=== PATIENT | male | born 1965 | race Caucasian/White ===

== ENCOUNTER 2020-12-22 07:43 | Observation (INO) | payer MEDICARE, OTHER ==
[~2020-12-22] VITALS: Ht 167.6 cm; Wt 77.8 kg
[~2020-12-22 07:43] MED LIST: ASPI325T8 PO; CLOP75TA PO; LISI2.5T PO; METO25TA4 PO; SIMV40TA18 PO
--- NOTE | 2020-12-22 08:24 | PHYS DOC ---
Past Medical History Past Medical History: CAD, High Cholesterol, Hypertension, [place] Past Surgical History: Other Additional Past Surgical Histo: cardiac stents, hernia surgery Smoking Status: Current Every Day Smoker Alcohol Use: Occasionally Drug Use: Marijuana General Adult EDM: Chief Complaint: BLOODY STOOL HPI: HPI: 55-year-old male past medical history of CAD with stent on Plavix, hypertension hyperlipidemia, presents the ED with complaints of black stools for the past 2- 3days, hasn't taken his aspirin or plavix because of this (ASA 324mg qdaily). Patient with no prior history of GI bleed or blood transfusion. Denies any known liver disease but drinks alcohol frequently. Has no primary care physician and states his medications are refilled by Dr. Pennington. No associated syncope, dyspnea, abdominal pain or chest pain. at bedside-pt consents for her involvement/knowledge of his medical tx/plan. Review of Systems: Review of Systems: Constitutional: Well developed, well nourished, no acute distress, non-toxic appearance. HENT: Normocephalic, atraumatic, Eyes: EOMI, conjunctiva normal, no discharge. Neck: Normal range of motion, supple, Cardiovascular: S1/2 present, regular rhythm Lungs & Thorax: Speaking in full sentences, bilateral equal chest rise, no tachypnea or increased work of breathing Abdomen: soft, no tenderness, Skin: Warm, dry, no erythema, no rash. [] Back: No tenderness, no CVA tenderness. [] Extremities: No tenderness, no cyanosis, no lower extremity edema Neurologic: Alert and oriented X 3, normal motor function, normal sensory function, no focal deficits noted. [] Psychologic: Affect normal, judgement normal, mood normal. [] Heart Score: C/O Chest Pain: No Risk Factors: Risk Factors: DM, Current or recent (<one month) smoker, HTN, HLP, family history of CAD, obesity. Risk Scores: Score 0 - 3: 2.5% MACE over next 6 weeks - Discharge Home Score 4 - 6: 20.3% MACE over next 6 weeks - Admit for Clinical Observation Score 7 - 10: 72.7% MACE over next 6 weeks - Early Invasive Strategies Allergies: Allergies: Allergies Coded Allergies Type Severity Reaction Last Updated Verified Sulfa (Sulfonamide Antibiotics) Allergy Intermediate hives 9/19/14 Yes morphine Allergy Intermediate "makes me bounce off the ayers" 05/14/14 Yes Penicillins Allergy Mild hives 05/14/14 Yes Physical Exam: PE: Constitutional: Well developed, well nourished, no acute distress, non-toxic appearance. HENT: Normocephalic, atraumatic, Eyes: EOMI, conjunctiva normal, no discharge. Neck: Normal range of motion, supple, Cardiovascular: S1/2 present, tachycardic on arrival Lungs & Thorax: Speaking in full sentences, bilateral equal chest rise, no tachypnea or increased work of breathing Abdomen: soft, no tenderness, obese Skin: Warm, dry, no erythema, no rash. [] Back: No tenderness, no CVA tenderness. [] Extremities: No tenderness, no cyanosis, no lower extremity edema Neurologic: Alert and oriented X 3, normal motor function, normal sensory fun ction, no focal deficits noted. [] Psychologic: Affect normal, judgement normal, mood normal. [] : Dark brown/black dried stool around external anus with no fissures or hemorrhoids, no stool in rectal vault, dark brown/black flecks of stool-could likely have false negative rectal occult *stool sample brought in that is black and appears gelatinous in texture EKG: EKG: Sinus rhythm at 89 bpm, no axis deviation, normal intervals, T wave inversion lead III, no ST elevations or ST depressions, no active chest pain Radiology/Procedures: Radiology/Procedures: []IMAGING REPORT Signed PATIENT: LESIA RANKIN ACCOUNT: [id number] : 1965 LOCATION: ER AGE: 55 SEX: M EXAM STATUS: REG ER ORD. PHYSICIAN: DALLAS JIMENEZ DO REASON: dark stool PROCEDURE: PORTABLE CHEST 1V Exam Date: 12/22/2020 8:26 AM XR CHEST 1V Indication: Reason: dark stool / Spl. Instructions: / History: Comparison: May 14, 2014 FINDINGS/ IMPRESSION: 6 mm nodular opacity overlapping the right lung base may represent nipple shadow versus a lung nodule. This was not visualized on the prior exam from 2013, nor is a similar opacity seen on the contralateral side of the current exam. Follow- up chest radiographs with nipple markers recommended. The cardiac silhouette and pulmonary vasculature are within normal limits. There is no focal consolidation, pleural effusion or pneumothorax. Electronically signed by: Adalberto Alvarenga MD (12/22/2020 8:43 AM) [id number] DICTATED and SIGNED BY: ADALBERTO ALVARENGA MD DATE: 12/22/20 [id number] 0 Course & Med Decision Making: Course & Med Decision Making Pertinent Labs and Imaging studies reviewed. (See chart for details) Concern for melena on Plavix? (CAD prior to 2013) and aspirin in a known drinker. Poor rectal occult which was negative for blood although patient's stool sample from home was positive for blood. No anemia,, cytopenia or transaminitis. Will admit for further medical management and GI consultation. Patient stable at time of admission and agrees with this plan. I have spoken with the patient and/or caregivers. I have explained the patient's condition, diagnosis and treatment plan based on the information available to me at this time. I have answered the patient's and/or caregivers questions and answered any concerns. The patient and/or caregivers have as good an understanding of the patient's diagnosis, condition and treatment plan as can be expected at this point. The patient has been stabilized within the capability of the emergency department. The patient will be transported for further care and management or will be moved to an observation or inpatient service. I have communicated with the staff or medical practitioner taking over this patient's care. Westley Disclaimer: Westley Disclaimer: This electronic medical record was generated, in whole or in part, using a voice recognition dictation system. Departure Departure Impression: Primary Impression: Melena Disposition: ADMITTED INPATIENT Admitting Physician: MARCELL (Dr. Sanhcez) Condition: STABLE Referrals: NO PCP (PCP) DALLAS JIMENEZ DO Dec 22, 2020 08:24
[2020-12-22] MEDS ORDERED: PANTOPRAZOLE IV PUSH 40 MG VIAL. IVP ONE (08:30)
--- NOTE | 2020-12-22 08:46 | RAD ---
Exam Date: 12/22/2020 8:26 AM XR CHEST 1V Indication: Reason: dark stool / Spl. Instructions: / History: Comparison: May 14, 2014 FINDINGS/ IMPRESSION: 6 mm nodular opacity overlapping the right lung base may represent nipple shadow versus a lung nodule . This was not visualized on the prior exam from 2013, nor is a similar opacity seen on the contralat eral side of the current exam. Follow-up chest radiographs with nipple markers recommended. The cardiac silhouette and pulmonary vasculature are within normal limits. There is no focal consolidation, pleural effusion or pneumothorax. Electronically signed by: Tyree Alvarenga MD (12/22/2020 8:43 AM) [id number]
[2020-12-22 08:57] LABS: BASO # 0.2 x10^3/uL (0.0-0.2); BASO % 1 % (0-3); EOS # 0.1 x10^3/uL (0.0-0.7); EOS % 1 % (0-3); HEMATOCRIT 39.9 % (39.0-53.0); HEMOGLOBIN 13.7 g/dL (13.0-17.5); LYMPH # 2.3 x10^3/uL (1.0-4.8); LYMPH % 19 % (24-48); MEAN CORPUSCULAR HEMOGLOBIN 31 pg (25-35); MEAN CORPUSCULAR HGB CONC 34 g/dL (31-37); MEAN CORPUSCULAR VOLUME 89 fL (79-100); MONO # 0.9 x10^3/uL (0.0-1.1); MONO % 8 % (0-9); NEUT # 8.7 x10^3/uL (1.8-7.7); NEUT % 71 % (31-73); PLATELET COUNT 370 x10^3/uL (140-400); RED BLOOD COUNT 4.47 x10^6/uL (4.30-5.70); RED CELL DISTRIBUTION WIDTH 13.2 % (11.5-14.5); WHITE BLOOD COUNT 12.2 x10^3/uL (4.0-11.0)
[2020-12-22 08:59] LABS: GFR 77.6; POTASSIUM 4.7 mmol/L (3.5-5.1)
[2020-12-22 09:03] LABS: FECAL OB PT NEGATIVE (NEG)
[2020-12-22 09:05] LABS: ALBUMIN 3.8 g/dL (3.4-5.0); DIRECT BILIRUBIN 0.1 mg/dL (0.0-0.2); TOTAL BILIRUBIN 0.4 mg/dL (0.2-1.0); TOTAL PROTEIN 7.6 g/dL (6.4-8.2)
[2020-12-22 09:07] LABS: PROTHROMBIN TIME PATIENT 12.8 SEC (11.7-14.0)
[2020-12-22 10:57] LABS: FECAL OB PT POSITIVE (NEG)
--- NOTE | 2020-12-22 11:35 | PDOC1 ---
History and Physical Date of Admission Date of Admission DATE: 12/22/20 TIME: 11:34 Identification/Chief Complaint Chief Complaint Blood in stool Source Source: Patient History of Present Illness History of Present Illness Mr Hidalgo is a 55yo M w/ PMHx CAD s/p remote stenting 2012, High Cholesterol, Hypertension, smoker, heavy drinker of ETOH who presents the ED with complaints of black stools for the past 3 days, hasn't taken his aspirin or plavix because of this. He actually brought in a stool sample to the ED. Patient with no prior history of GI bleed or blood transfusion. Denies any known liver disease but drinks up to 12 beers daily and smokes a pack of cigarettes a day. Tries to eat healthy, but eats spicy food frequently. No associated syncope, dyspnea, abdominal pain or chest pain. at bedside. WBC 12, Hb 13.7, hemoccult positive. Metabolic panel WNL EKG Sinus rhythm at 89 bpm, no axis deviation, normal intervals, T wave inversion lead III, no ST elevations or ST depressions, no active chest pain Chest radiograph with no abnormalities but possible 6mm nodule nipple shadow vs lung nodule. Due to volume of his melanotic stools, admitted for further care with GI and cardiology consultation Past Medical History Cardiovascular: CAD, Syncope, Hyperlipidemia, Other Pulmonary: No pertinent hx CENTRAL NERVOUS SYSTEM: Other GI: GERD Heme/Onc: No pertinent hx Hepatobiliary: No pertinent hx Psych: Anxiety, Depression Musculoskeletal: Other Rheumatologic: No pertinent hx Renal/: No pertinent hx Endocrine: No pertinent hx Past Surgical History Past Surgical History: Hernia Repair, Other Family History Family History: Cancer (Breast - mother, brain - uncle, lung - grandfather), C oronary Artery Disease Social History Smoke: 1 pack per day ALCOHOL: heavy (6-12 beers) Drugs: None Current Medications Current Medications Current Medications Pantoprazole Sodium (PROTONIX VIAL for IV PUSH) 80 mg 1X ONCE IVP Last administered on 12/22/20at 08:44; Start 12/22/20 at 08:30; Stop 12/22/20 at 08:31; Status DC Active Scripts Active Reported Aspirin 325 Mg Tablet 1 Tab PO HS Lisinopril 2.5 Mg Tablet 1 Tab PO DAILY Metoprolol Tartrate 25 Mg Tablet 1 Tab PO BID Simvastatin 40 Mg Tablet 1 Tab PO QHS Clopidogrel (Clopidogrel Bisulfate) 75 Mg Tablet 1 Tab PO DAILY Allergies Allergies: Coded Allergies: Sulfa (Sulfonamide Antibiotics) (Verified Allergy, Severe, hives, swelling, 12/22/20) Penicillins (Verified Allergy, Intermediate, hives, 12/22/20) morphine (Verified Adverse Reaction, Mild, "makes me bounce off the ayers", 12/22/20) ROS General: No: Chills, Night Sweats, Fatigue, Malaise, Appetite, Other PSYCHOLOGICAL ROS: YES: Anxiety; No: Behavioral Disorder, Concentration difficultie, Decreased libido, Depression, Disorientation, Hallucinations, Hostility, Irritablity, Memory diff iculties, Mood Swings, Obsessive thoughts, Physical abuse, Sexual abuse, Sleep disturbances, Suicidal ideation, Other Eyes: No Blurry vision, No Decreased vision, No Double vision, No Dry eyes, No Excessive tearing, No Eye Pain, No Itchy Eyes, No Loss of vision, No Photophobia, No Scotomata, No Uses contacts, No Uses glasses, No Other HEENT: No: Heacaches, Visual Changes, Hearing change, Nasal congestion, Nasal discharge, Oral lesions, Sinus pain, Sore Throat, Epistaxis, Sneezing, Snoring, Tinnitus, Vertigo, Vocal changes, Other ALLERGY AND IMMUNOLOGY: No: Hives, Insect Bite Sensitivity, Itchy/Watery Eyes, Nasal Congestion, Post Nasal Drip, Seasonal Allergies, Other Hematological and Lymphatic: No: Bleeding Problems, Blood Clots, Blood Transfusions, Brusing, Night Sweats, Pallor, Swollen Lymph Nodes, Other ENDOCRINE: No: Breast Changes, Galactorrhea, Hair Pattern Changes, Hot Flashes, Malaise/lethargy, Mood Swings, Palpitations, Polydipsia/polyuria, Skin Changes, Temperature Intolerance, Unexpected Weight Changes, Other Breast: No New/Changing Breast Lumps, No Nipple changes, No Nipple discharge, No Other Respiratory: No: Cough, Hemoptysis, Orthopnea, Pleuritic Pain, Shortness of breath, SOB with excertion, Sputum Changes, Stridor, Tachypnea, Wheezing, Other Cardiovascular: No Chest Pain, No Palpitations, No Orthopnea, No Paroxysmal Noc. Dyspnea, No Edema, No Lt Headedness, No Other Gastrointestinal: Yes Melena; No Nausea, No Vomiting, No Abdominal Pain, No Diarrhea, No Constipation, No Hematochezia, No Other Genitourinary: No Dysuria, No Frequency, No Incontinence, No Hematuria, No Retention, No Discharge, No Urgency, No Pain, No Flank Pain, No Other, No , No , No , No , No , No , No Musculoskeletal: No Gait Disturbance, No Joint Pain, No Joint Stiffness, No Joint Swelling, No Muscle Pain, No Muscular Weakness, No Pain In:, No Swelling In:, No Other Neurological: No Behavorial Changes, No Bowel/Bladder ControlChng, No Confusion, No Dizziness, No Gait Disturbance, No Headaches, No Impaired Coord/balance, No Memory Loss, No Numbness/Tingling, No Seizures, No Speech Problems, No Tremors, No Visual Changes, No Weakness, No Other Skin: No Dry Skin, No Eczema, No Hair Changes, No Lumps, No Mole Changes, No Mottling, No Nail Changes, No Pruritus, No Rash, No Skin Lesion Changes, No Other, No Acne Physical Exam General: Alert, Oriented X3, Cooperative, No acute distress HEENT: Atraumatic, PERRLA, EOMI, Mucous membr. moist/pink Lungs: Clear to auscultation, Normal air movement Heart: S1S2, RRR, no thrills, no rubs, no gallops, no murmurs Abdomen: Normal bowel sounds, Soft, No tenderness, No hepatosplenomegaly, No masses Rectal Exam: other Extremities: No clubbing, No cyanosis, No edema, Normal pulses, No tenderness/swelling Skin: No rashes, No breakdown, No significant lesion Neuro: Normal gait, Normal speech, Strength at 5/5 X4 ext, Normal tone, Sensation intact, Cranial nerves 3-12 NL, Reflexes 2+ Psych/Mental Status: Mental status NL, Mood NL Vitals Vitals Vital Signs Date Time Temp Pulse Resp B/P (MAP) Pulse Ox O2 Delivery O2 Flow Rate FiO2 12/22/20 08:15 99.3 109 20 163/84 (110) 100 Room Air 99.3 Labs Labs Laboratory Tests Test 12/22/20 08:40 12/22/20 08:45 12/22/20 10:37 Stool Occult Blood Negative (NEG) Positive (NEG) White Blood Count 12.2 x10^3/uL (4.0-11.0) Red Blood Count 4.47 x10^6/uL (4.30-5.70) Hemoglobin 13.7 g/dL (13.0-17.5) Hematocrit 39.9 % (39.0-53.0) Mean Corpuscular Volume 89 fL (79-100) Mean Corpuscular Hemoglobin 31 pg (25-35) Mean Corpuscular Hemoglobin Concent 34 g/dL (31-37) Red Cell Distribution Width 13.2 % (11.5-14.5) Platelet Count 370 x10^3/uL (140-400) Neutrophils (%) (Auto) 71 % (31-73) Lymphocytes (%) (Auto) 19 % (24-48) Monocytes (%) (Auto) 8 % (0-9) Eosinophils (%) (Auto) 1 % (0-3) Basophils (%) (Auto) 1 % (0-3) Neutrophils # (Auto) 8.7 x10^3/uL (1.8-7.7) Lymphocytes # (Auto) 2.3 x10^3/uL (1.0-4.8) Monocytes # (Auto) 0.9 x10^3/uL (0.0-1.1) Eosinophils # (Auto) 0.1 x10^3/uL (0.0-0.7) Basophils # (Auto) 0.2 x10^3/uL (0.0-0.2) Prothrombin Time 12.8 SEC (11.7-14.0) Prothromb Time International Ratio 1.0 (0.8-1.1) Activated Partial Thromboplast Time 27 SEC (24-38) Sodium Level 137 mmol/L (136-145) Potassium Level 4.7 mmol/L (3.5-5.1) Chloride Level 100 mmol/L (98-107) Carbon Dioxide Level 26 mmol/L (21-32) Anion Gap 11 (6-14) Blood Urea Nitrogen 33 mg/dL (8-26) Creatinine 1.0 mg/dL (0.7-1.3) Estimated GFR (Cockcroft-Gault) 77.6 Glucose Level 118 mg/dL (70-99) Calcium Level 9.0 mg/dL (8.5-10.1) Total Bilirubin 0.4 mg/dL (0.2-1.0) Direct Bilirubin 0.1 mg/dL (0.0-0.2) Aspartate Amino Transf (AST/SGOT) 25 U/L (15-37) Alanine Aminotransferase (ALT/SGPT) 37 U/L (16-63) Alkaline Phosphatase 106 U/L (46-116) Total Protein 7.6 g/dL (6.4-8.2) Albumin 3.8 g/dL (3.4-5.0) Laboratory Tests Test 12/22/20 08:40 12/22/20 08:45 12/22/20 10:37 Stool Occult Blood Negative (NEG) Positive (NEG) White Blood Count 12.2 x10^3/uL (4.0-11.0) Red Blood Count 4.47 x10^6/uL (4.30-5.70) Hemoglobin 13.7 g/dL (13.0-17.5) Hematocrit 39.9 % (39.0-53.0) Mean Corpuscular Volume 89 fL (79-100) Mean Corpuscular Hemoglobin 31 pg (25-35) Mean Corpuscular Hemoglobin Concent 34 g/dL (31-37) Red Cell Distribution Width 13.2 % (11.5-14.5) Platelet Count 370 x10^3/uL (140-400) Neutrophils (%) (Auto) 71 % (31-73) Lymphocytes (%) (Auto) 19 % (24-48) Monocytes (%) (Auto) 8 % (0-9) Eosinophils (%) (Auto) 1 % (0-3) Basophils (%) (Auto) 1 % (0-3) Neutrophils # (Auto) 8.7 x10^3/uL (1.8-7.7) Lymphocytes # (Auto) 2.3 x10^3/uL (1.0-4.8) Monocytes # (Auto) 0.9 x10^3/uL (0.0-1.1) Eosinophils # (Auto) 0.1 x10^3/uL (0.0-0.7) Basophils # (Auto) 0.2 x10^3/uL (0.0-0.2) Prothrombin Time 12.8 SEC (11.7-14.0) Prothromb Time International Ratio 1.0 (0.8-1.1) Activated Partial Thromboplast Time 27 SEC (24-38) Sodium Level 137 mmol/L (136-145) Potassium Level 4.7 mmol/L (3.5-5.1) Chloride Level 100 mmol/L (98-107) Carbon Dioxide Level 26 mmol/L (21-32) Anion Gap 11 (6-14) Blood Urea Nitrogen 33 mg/dL (8-26) Creatinine 1.0 mg/dL (0.7-1.3) Estimated GFR (Cockcroft-Gault) 77.6 Glucose Level 118 mg/dL (70-99) Calcium Level 9.0 mg/dL (8.5-10.1) Total Bilirubin 0.4 mg/dL (0.2-1.0) Direct Bilirubin 0.1 mg/dL (0.0-0.2) Aspartate Amino Transf (AST/SGOT) 25 U/L (15-37) Alanine Aminotransferase (ALT/SGPT) 37 U/L (16-63) Alkaline Phosphatase 106 U/L (46-116) Total Protein 7.6 g/dL (6.4-8.2) Albumin 3.8 g/dL (3.4-5.0) Images Images Chest radiograph: 6 mm nodular opacity overlapping the right lung base may represent nipple shadow versus a lung nodule. This was not visualized on the prior exam from 2013, nor is a similar opacity seen on the contralateral side of the current exam. Follow- up chest radiographs with nipple markers recommended. The cardiac silhouette and pulmonary vasculature are within normal limits. There is no focal consolidation, pleural effusion or pneumothorax. VTE Prophylaxis Ordered VTE Prophylaxis Devices: Yes VTE Pharmacological Prophylaxi: Contraindicated Assessment/Plan Assessment/Plan A/P: Melena - likely PUD given his ETOH, smoking and dual antiplatelet therapy. NPO after midnight. GI to perform EGD Bloating, nausea - likely due to upper GI bleed, IV ppi, IV antiemetics Leukocytosis - no clear infectious source, will repeat, likely reactive CAD s/p PCI/LIO to RCA and OM in 2012. On ASA/Plavix Hypertension - controlled Hyperlipidemia; statin GERD - worsened by smoking and drinking, counseled Tobacco use disorder - counseled on cessation Alcohol use disorder - counseled FEN - clear liquid, npo after midnight PPX - PPI, SCDs FULL CODE Dispo - observation Justifications for Admission Other Justification LAUREN FERNANDEZ MD Dec 22, 2020 11:35
[2020-12-22] MEDS ORDERED: potassium PO (12:52)
[2020-12-22] MEDS ORDERED: OMEG1CAP6 PO (12:52)
--- NOTE | 2020-12-22 13:32 | PDOC2 ---
GI CONSULT Date of Service: DATE: 12/22/20 TIME: 13:23 Reason For Consult: melena HPI: HPI: 55 y/o male admitted through ER. 2 days of black tarry stools (2-3x times daily). Associated w/ increased gas, bloating, and "gagging" yesterday morning after eating a bland egg and toast. H/o CAD on Plavix and ASA (for more than 6 years). No reflux, dysphagia, vomiting, abd pain, diarrhea, constipation, hematochezia, or weight loss. No previous EGD or colonoscopy. No GB, liver, pancreas, or PUD history. No NSAIDs. Normal Hgb (13 - was 16 range when here in 2013), BUN 33. Two Hemoccults done - one negative (from rectal exam in ER), one positive (from stool sample he provided from home). PMH: PMH: NH, CAD w/ stent, HTN, HLD, anxiety/depression right inguinal hernia repair FH: Family History: Cancer (grandfather - lung, breast - mother, brain - uncle) Social History: Smoke: <1 pack per day ALCOHOL: other (6-12 beers 2-3 times weekly) Drugs: Marijuana ROS: GEN: Denies fevers, chills, sweats HEENT: Denies blurred vision, sore throat CV: Denies chest pain RESP: Denies shortness of air, cough GI: Per HPI : Denies hematuria, dysuria ENDO: Denies weight changes NEURO: Denies confusion, dizziness MSK: Denies weakness, joint pain/swelling SKIN: Denies jaundice, pruritus Vitals: Vitals: Vital Signs Date Time Temp Pulse Resp B/P (MAP) Pulse Ox O2 Delivery O2 Flow Rate FiO2 12/22/20 12:12 101 132/81 (98) 98 Room Air 12/22/20 08:15 99.3 20 99.3 Labs: Labs: Laboratory Tests Test 12/22/20 08:40 12/22/20 08:45 12/22/20 10:37 Stool Occult Blood Negative (NEG) Positive (NEG) White Blood Count 12.2 x10^3/uL (4.0-11.0) Red Blood Count 4.47 x10^6/uL (4.30-5.70) Hemoglobin 13.7 g/dL (13.0-17.5) Hematocrit 39.9 % (39.0-53.0) Mean Corpuscular Volume 89 fL (79-100) Mean Corpuscular Hemoglobin 31 pg (25-35) Mean Corpuscular Hemoglobin Concent 34 g/dL (31-37) Red Cell Distribution Width 13.2 % (11.5-14.5) Platelet Count 370 x10^3/uL (140-400) Neutrophils (%) (Auto) 71 % (31-73) Lymphocytes (%) (Auto) 19 % (24-48) Monocytes (%) (Auto) 8 % (0-9) Eosinophils (%) (Auto) 1 % (0-3) Basophils (%) (Auto) 1 % (0-3) Neutrophils # (Auto) 8.7 x10^3/uL (1.8-7.7) Lymphocytes # (Auto) 2.3 x10^3/uL (1.0-4.8) Monocytes # (Auto) 0.9 x10^3/uL (0.0-1.1) Eosinophils # (Auto) 0.1 x10^3/uL (0.0-0.7) Basophils # (Auto) 0.2 x10^3/uL (0.0-0.2) Prothrombin Time 12.8 SEC (11.7-14.0) Prothromb Time International Ratio 1.0 (0.8-1.1) Activated Partial Thromboplast Time 27 SEC (24-38) Sodium Level 137 mmol/L (136-145) Potassium Level 4.7 mmol/L (3.5-5.1) Chloride Level 100 mmol/L (98-107) Carbon Dioxide Level 26 mmol/L (21-32) Anion Gap 11 (6-14) Blood Urea Nitrogen 33 mg/dL (8-26) Creatinine 1.0 mg/dL (0.7-1.3) Estimated GFR (Cockcroft-Gault) 77.6 Glucose Level 118 mg/dL (70-99) Calcium Level 9.0 mg/dL (8.5-10.1) Total Bilirubin 0.4 mg/dL (0.2-1.0) Direct Bilirubin 0.1 mg/dL (0.0-0.2) Aspartate Amino Transf (AST/SGOT) 25 U/L (15-37) Alanine Aminotransferase (ALT/SGPT) 37 U/L (16-63) Alkaline Phosphatase 106 U/L (46-116) Total Protein 7.6 g/dL (6.4-8.2) Albumin 3.8 g/dL (3.4-5.0) Ethyl Alcohol Level < 10 mg/dL (0-10) Allergies: Coded Allergies: Sulfa (Sulfonamide Antibiotics) (Verified Allergy, Severe, hives, swelling, 12/22/20) Penicillins (Verified Allergy, Intermediate, hives, 12/22/20) morphine (Verified Adverse Reaction, Mild, "makes me bounce off the ayers", 12/22/20) Medications: Current Medications Medications (Trade) Dose Ordered Sig/Julian Route PRN Reason Start Time Stop Time Status Last Admin Dose Admin Pantoprazole Sodium (PROTONIX VIAL for IV PUSH) 80 mg 1X ONCE IVP 12/22/20 08:30 12/22/20 08:31 DC 12/22/20 08:44 Imaging: Imaging: CXR 12/22 FINDINGS: 6 mm nodular opacity overlapping the right lung base may represent nipple shadow versus a lung nodule. This was not visualized on the prior exam from 2013, nor is a similar opacity seen on the contralateral side of the current exam. Follow- up chest radiographs with nipple markers recommended. The cardiac silhouette and pulmonary vasculature are within normal limits. There is no focal consolidation, pleural effusion or pneumothorax. PE: GEN: NAD HEENT: Atraumatic, PERRL LUNGS: diminished anteriorly, coughing HEART: borderline tachycardic ABD: NABS, soft, some distention, non-tender EXTREMITY: No edema SKIN: No rashes, no jaundice NEURO/PSYCH: A & O 3 A/P: A/P: Melena, bloating, nausea Leukocytosis, +Hemoccult, elevated BUN CRC screen - none CAD - on Plavix and ASA Alcohol overuse -- NPO for now, continue IV PPI, monitor labs. Will review timing of EGD w/ Dr. Michelle - inpt vs outpt. Also needs outpt screening colonoscopy - our office will arrange. JARRED ACUÑA Dec 22, 2020 13:32
--- NOTE | 2020-12-22 14:32 | PDOC2 ---
JENNIFER SANCHEZ WILL CALL ORDER CLERK 12/22/20 1431: CARDIAC CONSULT DATE OF CONSULT Date of Consult DATE: 12/22/20 TIME: 14:15 REASON FOR CONSULT Reason for Consult: CAD with stents. Need to continue Plavix? REFERRING PHYSICIAN Referring Physician: SARITA Whatley SOURCE Source: Chart review, Patient HISTORY OF PRESENT ILLNESS HISTORY OF PRESENT ILLNESS This is a 55 yo male, with a h/o CAD s/p PCI/stents, who presented secondary to black stools for the last 2-3 days. Held his ASA/Plavix yesterday. Tarry stools persisted so he came to the ED for further evaluation and treatment. GI team has been consulted and EGD is planned for tomorrow. Given h/o CAD on antiplatelets, cardiology consultation was obtained. He denies any dizziness, diaphoresis, chest pain, or shortness of breath. PAST MEDICAL HISTORY Cardiovascular: CAD, HTN, Hyperlipidemia GI: GERD Psych: Anxiety, Depression PAST SURGICAL HISTORY Past Surgical History: Other (PCI/stent ) FAMILY HISTORY Family History: Diabetes, Heart Disease SOCIAL HISTORY Smoke: <1 pack per day ALCOHOL: occassional Drugs: None Lives: with Family CURRENT MEDICATIONS CURRENT MEDICATIONS Current Medications Medications (Trade) Dose Ordered Sig/Julian Route PRN Reason Start Time Stop Time Status Last Admin Dose Admin Pantoprazole Sodium (PROTONIX VIAL for IV PUSH) 80 mg 1X ONCE IVP 12/22/20 08:30 12/22/20 08:31 DC 12/22/20 08:44 ALLERGIES ALLERGIES: Coded Allergies: Sulfa (Sulfonamide Antibiotics) (Verified Allergy, Severe, hives, swelling, 12/22/20) Penicillins (Verified Allergy, Intermediate, hives, 12/22/20) morphine (Verified Adverse Reaction, Mild, "makes me bounce off the ayers", 12/22/20) ROS Review of System 14 point ROS conducted with pertinent positives noted above in hPI PHYSICAL EXAM General: Alert, Oriented X3, Cooperative, No acute distress HEENT: Atraumatic, Mucous membr. moist/pink Lungs: Clear to auscultation Heart: Regular rate Abdomen: Soft, No tenderness Extremities: No edema, Normal pulses Skin: No significant lesion Neuro: Normal speech, Sensation intact Psych/Mental Status: Mental status NL, Mood NL MUSCULOSKELETAL: No deformity VITALS/I&O VITALS/I&O: Vital Signs Date Time Temp Pulse Resp B/P (MAP) Pulse Ox O2 Delivery O2 Flow Rate FiO2 12/22/20 12:12 101 132/81 (98) 98 Room Air 12/22/20 08:15 99.3 20 99.3 LABS Lab: Laboratory Tests Test 12/22/20 08:40 12/22/20 08:45 12/22/20 10:37 Stool Occult Blood Negative (NEG) Positive (NEG) White Blood Count 12.2 x10^3/uL (4.0-11.0) H Red Blood Count 4.47 x10^6/uL (4.30-5.70) Hemoglobin 13.7 g/dL (13.0-17.5) Hematocrit 39.9 % (39.0-53.0) Mean Corpuscular Volume 89 fL (79-100) Mean Corpuscular Hemoglobin 31 pg (25-35) Mean Corpuscular Hemoglobin Concent 34 g/dL (31-37) Red Cell Distribution Width 13.2 % (11.5-14.5) Platelet Count 370 x10^3/uL (140-400) Neutrophils (%) (Auto) 71 % (31-73) Lymphocytes (%) (Auto) 19 % (24-48) L Monocytes (%) (Auto) 8 % (0-9) Eosinophils (%) (Auto) 1 % (0-3) Basophils (%) (Auto) 1 % (0-3) Neutrophils # (Auto) 8.7 x10^3/uL (1.8-7.7) H Lymphocytes # (Auto) 2.3 x10^3/uL (1.0-4.8) Monocytes # (Auto) 0.9 x10^3/uL (0.0-1.1) Eosinophils # (Auto) 0.1 x10^3/uL (0.0-0.7) Basophils # (Auto) 0.2 x10^3/uL (0.0-0.2) Prothrombin Time 12.8 SEC (11.7-14.0) Prothrombin Time INR 1.0 (0.8-1.1) Activated Partial Thromboplast Time 27 SEC (24-38) Sodium Level 137 mmol/L (136-145) Potassium Level 4.7 mmol/L (3.5-5.1) Chloride Level 100 mmol/L (98-107) Carbon Dioxide Level 26 mmol/L (21-32) Anion Gap 11 (6-14) Blood Urea Nitrogen 33 mg/dL (8-26) H Creatinine 1.0 mg/dL (0.7-1.3) Estimated GFR (Cockcroft-Gault) 77.6 Glucose Level 118 mg/dL (70-99) H Calcium Level 9.0 mg/dL (8.5-10.1) Total Bilirubin 0.4 mg/dL (0.2-1.0) Direct Bilirubin 0.1 mg/dL (0.0-0.2) Aspartate Amino Transferase (AST) 25 U/L (15-37) Alanine Aminotransferase (ALT) 37 U/L (16-63) Alkaline Phosphatase 106 U/L (46-116) Total Protein 7.6 g/dL (6.4-8.2) Albumin 3.8 g/dL (3.4-5.0) Ethyl Alcohol Level < 10 mg/dL (0-10) Laboratory Tests 12/22/20 08:45 Laboratory Tests 12/22/20 08:45 ECHOCARDIOGRAM ECHOCARDIOGRAM <Conclusion> The left ventricle is normal size. The left ventricular systolic function is normal and the ejection fraction is within normal range. The Ejection Fraction is 50-55%. The left atrium is mildly dilated. The aortic valve is normal in structure and function. Doppler and Color Flow revealed mild to moderate aortic regurgitation. The mitral valve is normal in structure and function. Doppler and Color-flow revealed trace to mild mitral regurgitation. The tricuspid valve is normal in structure and function. DATE: 05/14/14 1617 STRESS TEST STRESS TEST Conclusion 1. 1. Stress test negative for ischemia based on ekg and perfusion imaging study 2. 2. EF 60% 3. 3. Low risk MPI DATE: 05/15/14 1529 ASSESSMENT/PLAN ASSESSMENT/PLAN 1. Nausea, melena, Hemoccult +. Plans for EGD in am 2. CAD s/p PCI/LIO to RCA and OM in 2012. On DAPT with ASA/Plavix 3. Hypertension; now controlled 4. Hyperlipidemia; statin 5. GERD 6. Tobaccoism Recommendations Okay to hold Plavix/ASA therapy Outpatient echo Consider outpatient ischemic evaluation Follow GI recs Supportive care Further recs pending EGD YODIT CASTLE MD 4/29/21 1741: CARDIAC CONSULT ASSESSMENT/PLAN ASSESSMENT/PLAN Patient seen and evaluated. I agree with our nurse practitioners assessment and plan. Nausea, melena, Hemoccult +. Followed by GI. Plan for an EGD in the morning. CAD s/p PCI/LIO to RCA and OM in 2012. On DAPT with ASA/Plavix. Low risk for h olding aspirin and Plavix until GI status is evaluated. Hypertension; now controlled Hyperlipidemia; statin GERD Tobaccoism JENNIFER SANCHEZ APRN Dec 22, 2020 14:31 YODIT CASTLE MD Dec 22, 2020 17:41
[2020-12-22 15:00] VITALS: BP 158/84
[2020-12-22] MEDS ORDERED: ACETAMINOPHEN 650 MG SUPP.RECT. PR PRN (17:45)
[2020-12-22] MEDS ORDERED: ONDANSETRON PF 4 MG/2 ML VIAL. IVP PRN (17:45)
[2020-12-22 19:00] VITALS: BP 155/83
[2020-12-22 23:00] VITALS: BP 113/63
[2020-12-23] VITALS (7 sets, daily range): BP systolic 115–149; BP diastolic 57–86
[2020-12-23 04:52] LABS: HEMOGLOBIN 11.6 g/dL (13.0-17.5); RED BLOOD COUNT 3.68 x10^6/uL (4.30-5.70); RED CELL DISTRIBUTION WIDTH 13.6 % (11.5-14.5); WHITE BLOOD COUNT 8.3 x10^3/uL (4.0-11.0)
[2020-12-23 05:27] LABS: CALCIUM 8.2 mg/dL (8.5-10.1); GFR 77.6; POTASSIUM 3.9 mmol/L (3.5-5.1)
[2020-12-23] MEDS ORDERED: IV RINGERS,LACTATED 1000ML 1,000 ML IV SCH (07:15)
[2020-12-23] MEDS ORDERED: PANTOPRAZOLE IV PUSH 40 MG VIAL. IVP SCH (07:30)
[2020-12-23] MEDS ORDERED: PROPOFOL 10 MG/ML (20ML) VIAL. IV ONE ×2 (08:02→08:23)
--- NOTE | 2020-12-23 08:19 | PDOC4 ---
Operative Note Operative Note EGD with biopsies Meds Propofol per anesthesia Pre-op dx Melena post-op dx gastric ucler s/p bx duodenal ulcer with clean base posterior wall 1st portion duodenum Imp Melena- secondary to plavix/asa induced DU/ Rec stop plavix permanently if possible/asa for 2 weeks PPI therapy for 2 months with interval EGD to confirm healing at that time. DAYNE FUNEZ MD Dec 23, 2020 08:19
--- NOTE | 2020-12-23 09:43 | PDOC ---
[employer] PROGRESS NOTE Date of Service DOS: DATE: 12/23/20 TIME: 09:42 Chief Complaint Chief Complaint A/P: Melena - PUD given his ETOH, smoking and dual antiplatelet therapy.s/p EGD with 2 ulcers Bloating, nausea - likely due to upper GI bleed, IV ppi, IV antiemetics Leukocytosis - no clear infectious source, will repeat, likely reactive CAD s/p PCI/LIO to RCA and OM in 2012. On ASA/Plavix Hypertension - controlled Hyperlipidemia; statin GERD - worsened by smoking and drinking, counseled Tobacco use disorder - counseled on cessation Alcohol use disorder - counseled FEN - clear liquid, npo after midnight PPX - PPI, SCDs FULL CODE Dispo - observation History of Present Illness History of Present Illness Mr Hidalgo is a 55yo M w/ PMHx CAD s/p remote stenting 2012, High Cholesterol, Hypertension, smoker, heavy drinker of ETOH who presents the ED with complaints of black stools for the past 3 days, hasn't taken his aspirin or plavix because of this. He actually brought in a stool sample to the ED. Patient with no prior history of GI bleed or blood transfusion. Denies any known liver disease but drinks up to 12 beers daily and smokes a pack of cigarettes a day. Tries to eat healthy, but eats spicy food frequently. No associated syncope, dyspnea, abdominal pain or chest pain. at bedside. WBC 12, Hb 13.7, hemoccult positive. Metabolic panel WNL EKG Sinus rhythm at 89 bpm, no axis deviation, normal intervals, T wave inversion lead III, no ST elevations or ST depressions, no active chest pain Chest radiograph with no abnormalities but possible 6mm nodule nipple shadow vs lung nodule. Due to volume of his melanotic stools, admitted for further care with GI and cardiology consultation To EGD this morning with gastric and clean based duodenal ulcer. GI recommends PPI as well as holding plavix lifelong and ASA for 2 weeks. Vitals/I&O Vitals/I&O: Vital Signs Date Time Temp Pulse Resp B/P (MAP) Pulse Ox O2 Delivery O2 Flow Rate FiO2 12/23/20 08:44 97.5 81 20 140/65 99 Room Air 97.5 I & O 12/22/20 12/22/20 12/23/20 15:00 23:00 07:00 Intake Total 1150 ml 200 ml Balance 1150 ml 200 ml Physical Exam General: Alert, Oriented X3, Cooperative, No acute distress Heart: Regular rate Abdomen: Normal bowel sounds, Soft, No tenderness, No hepatosplenomegaly, No masses Extremities: No clubbing, No cyanosis, No edema, Normal pulses, No tend erness/swelling Skin: No rashes, No breakdown, No significant lesion Labs Labs: Laboratory Tests Test 12/22/20 10:37 12/22/20 18:00 12/23/20 04:00 Stool Occult Blood Positive (NEG) SARS-CoV-2 Antigen (Rapid) Negative (NEGATIVE) White Blood Count 8.3 x10^3/uL (4.0-11.0) Red Blood Count 3.68 x10^6/uL (4.30-5.70) Hemoglobin 11.6 g/dL (13.0-17.5) Hematocrit 33.0 % (39.0-53.0) Mean Corpuscular Volume 90 fL (79-100) Mean Corpuscular Hemoglobin 31 pg (25-35) Mean Corpuscular Hemoglobin Concent 35 g/dL (31-37) Red Cell Distribution Width 13.6 % (11.5-14.5) Platelet Count 261 x10^3/uL (140-400) Sodium Level 138 mmol/L (136-145) Potassium Level 3.9 mmol/L (3.5-5.1) Chloride Level 103 mmol/L (98-107) Carbon Dioxide Level 27 mmol/L (21-32) Anion Gap 8 (6-14) Blood Urea Nitrogen 16 mg/dL (8-26) Creatinine 1.0 mg/dL (0.7-1.3) Estimated GFR (Cockcroft-Gault) 77.6 Glucose Level 87 mg/dL (70-99) Calcium Level 8.2 mg/dL (8.5-10.1) Assessment and Plan Assessmemt and Plan Problems Medical Problems: (1) Melena Status: Acute Comment Review of Relevant I have reviewed the following items claude (where applicable) has been applied. Medications: Current Medications Medications (Trade) Dose Ordered Sig/Julian Route PRN Reason Start Time Stop Time Status Last Admin Dose Admin Pantoprazole Sodium (PROTONIX VIAL for IV PUSH) 40 mg DAILYAC IVP 12/23/20 07:30 12/23/20 09:07 Ringer's Solution 1,000 ml @ 50 mls/hr Q20H IV 12/23/20 07:15 12/23/20 19:14 12/23/20 07:10 Justifications for Admission Other Justification LAUREN FERNANDEZ MD Dec 23, 2020 09:43
--- NOTE | 2020-12-23 09:58 | NUR ---
SW following. Discussed with RN, pt from home, room air, full liquid diet. Pt had an EGD this morning. RN advised no SW needs, and anticipates possible discharge home today with self care. SW will continue to follow.
[2020-12-23] MEDS ORDERED: PANT40TA77 PO (11:51)
--- NOTE | 2020-12-23 12:09 | PDOC3 ---
Discharge Summary Visit Information Date of Admission: Dec 22, 2020 Date of Discharge: Dec 23, 2020 Admitting Diagnosis: Melena Final Diagnosis Problems Medical Problems: (1) Melena Status: Acute Brief Hospital Course Allergies Allergies Coded Allergies Type Severity Reaction Last Updated Verified Sulfa (Sulfonamide Antibiotics) Allergy Severe hives, swelling 12/23/20 Yes Penicillins Allergy Intermediate hives 12/23/20 Yes morphine Adverse Reaction Mild "makes me bounce off the ayers" 12/23/20 Yes Vital Signs Vital Signs Date Time Temp Pulse Resp B/P (MAP) Pulse Ox O2 Delivery O2 Flow Rate FiO2 12/23/20 11:00 98.3 86 18 132/71 (91) 97 Room Air 98.3 Lab Results Laboratory Tests Test 12/22/20 08:40 12/22/20 08:45 12/22/20 10:37 12/22/20 18:00 Stool Occult Blood Negative (NEG) Positive (NEG) White Blood Count 12.2 x10^3/uL (4.0-11.0) Red Blood Count 4.47 x10^6/uL (4.30-5.70) Hemoglobin 13.7 g/dL (13.0-17.5) Hematocrit 39.9 % (39.0-53.0) Mean Corpuscular Volume 89 fL (79-100) Mean Corpuscular Hemoglobin 31 pg (25-35) Mean Corpuscular Hemoglobin Concent 34 g/dL (31-37) Red Cell Distribution Width 13.2 % (11.5-14.5) Platelet Count 370 x10^3/uL (140-400) Neutrophils (%) (Auto) 71 % (31-73) Lymphocytes (%) (Auto) 19 % (24-48) Monocytes (%) (Auto) 8 % (0-9) Eosinophils (%) (Auto) 1 % (0-3) Basophils (%) (Auto) 1 % (0-3) Neutrophils # (Auto) 8.7 x10^3/uL (1.8-7.7) Lymphocytes # (Auto) 2.3 x10^3/uL (1.0-4.8) Monocytes # (Auto) 0.9 x10^3/uL (0.0-1.1) Eosinophils # (Auto) 0.1 x10^3/uL (0.0-0.7) Basophils # (Auto) 0.2 x10^3/uL (0.0-0.2) Prothrombin Time 12.8 SEC (11.7-14.0) Prothromb Time International Ratio 1.0 (0.8-1.1) Activated Partial Thromboplast Time 27 SEC (24-38) Sodium Level 137 mmol/L (136-145) Potassium Level 4.7 mmol/L (3.5-5.1) Chloride Level 100 mmol/L (98-107) Carbon Dioxide Level 26 mmol/L (21-32) Anion Gap 11 (6-14) Blood Urea Nitrogen 33 mg/dL (8-26) Creatinine 1.0 mg/dL (0.7-1.3) Estimated GFR (Cockcroft-Gault) 77.6 Glucose Level 118 mg/dL (70-99) Calcium Level 9.0 mg/dL (8.5-10.1) Iron Level 87 ug/dL (65-175) Total Iron Binding Capacity 305 ug/dL (250-450) Iron Saturation 29 % (15-34) Total Bilirubin 0.4 mg/dL (0.2-1.0) Direct Bilirubin 0.1 mg/dL (0.0-0.2) Aspartate Amino Transf (AST/SGOT) 25 U/L (15-37) Alanine Aminotransferase (ALT/SGPT) 37 U/L (16-63) Alkaline Phosphatase 106 U/L (46-116) Total Protein 7.6 g/dL (6.4-8.2) Albumin 3.8 g/dL (3.4-5.0) Ethyl Alcohol Level < 10 mg/dL (0-10) SARS-CoV-2 Antigen (Rapid) Negative (NEGATIVE) Test 12/23/20 04:00 White Blood Count 8.3 x10^3/uL (4.0-11.0) Red Blood Count 3.68 x10^6/uL (4.30-5.70) Hemoglobin 11.6 g/dL (13.0-17.5) Hematocrit 33.0 % (39.0-53.0) Mean Corpuscular Volume 90 fL (79-100) Mean Corpuscular Hemoglobin 31 pg (25-35) Mean Corpuscular Hemoglobin Concent 35 g/dL (31-37) Red Cell Distribution Width 13.6 % (11.5-14.5) Platelet Count 261 x10^3/uL (140-400) Sodium Level 138 mmol/L (136-145) Potassium Level 3.9 mmol/L (3.5-5.1) Chloride Level 103 mmol/L (98-107) Carbon Dioxide Level 27 mmol/L (21-32) Anion Gap 8 (6-14) Blood Urea Nitrogen 16 mg/dL (8-26) Creatinine 1.0 mg/dL (0.7-1.3) Estimated GFR (Cockcroft-Gault) 77.6 Glucose Level 87 mg/dL (70-99) Calcium Level 8.2 mg/dL (8.5-10.1) Laboratory Tests Test 12/22/20 18:00 12/23/20 04:00 SARS-CoV-2 Antigen (Rapid) Negative (NEGATIVE) White Blood Count 8.3 x10^3/uL (4.0-11.0) Red Blood Count 3.68 x10^6/uL (4.30-5.70) Hemoglobin 11.6 g/dL (13.0-17.5) Hematocrit 33.0 % (39.0-53.0) Mean Corpuscular Volume 90 fL (79-100) Mean Corpuscular Hemoglobin 31 pg (25-35) Mean Corpuscular Hemoglobin Concent 35 g/dL (31-37) Red Cell Distribution Width 13.6 % (11.5-14.5) Platelet Count 261 x10^3/uL (140-400) Sodium Level 138 mmol/L (136-145) Potassium Level 3.9 mmol/L (3.5-5.1) Chloride Level 103 mmol/L (98-107) Carbon Dioxide Level 27 mmol/L (21-32) Anion Gap 8 (6-14) Blood Urea Nitrogen 16 mg/dL (8-26) Creatinine 1.0 mg/dL (0.7-1.3) Estimated GFR (Cockcroft-Gault) 77.6 Glucose Level 87 mg/dL (70-99) Calcium Level 8.2 mg/dL (8.5-10.1) Brief Hospital Course Mr Hidalgo is a 55yo M w/ PMHx CAD s/p remote stenting 2012, High Cholesterol, Hypertension, smoker, heavy drinker of ETOH who presents the ED with complaints of black stools for the past 3 days, hasn't taken his aspirin or plavix because of this. He actually brought in a stool sample to the ED. Patient with no prior history of GI bleed or blood transfusion. Denies any known liver disease but drinks up to 12 beers daily and smokes a pack of cigarettes a day. Tries to eat healthy, but eats spicy food frequently. No associated syncope, dyspnea, abdominal pain or chest pain. at bedside. WBC 12, Hb 13.7, hemoccult positive. Metabolic panel WNL EKG Sinus rhythm at 89 bpm, no axis deviation, normal intervals, T wave inversio n lead III, no ST elevations or ST depressions, no active chest pain Chest radiograph with no abnormalities but possible 6mm nodule nipple shadow vs lung nodule. Due to volume of his melanotic stools, admitted for further care with GI and cardiology consultation To EGD this morning with gastric and clean based duodenal ulcer. GI recommends PPI as well as holding plavix lifelong and ASA for 2 weeks. Consults: GI Problem list: Melena - PUD given his ETOH, smoking and dual antiplatelet therapy.s/p EGD with 2 ulcers Bloating, nausea - likely due to upper GI bleed, IV ppi, IV antiemetics Leukocytosis - no clear infectious source, will repeat, likely reactive CAD s/p PCI/LIO to RCA and OM in 2012. On ASA/Plavix Hypertension - controlled Hyperlipidemia; statin GERD - worsened by smoking and drinking, counseled Tobacco use disorder - counseled on cessation Alcohol use disorder - counseled Greater then 30 minutes spent on d/c Discharge Information Condition at Discharge: Improved Follow Up: Weeks (1) Disposition/Orders: D/C to Home Scheduled Lisinopril (Lisinopril) 2.5 Mg Tablet, 1 TAB PO DAILY, #30 Ref 5 (Reported) Entered as Reported by: MIKA EVANS on 05/14/14 1005 Last Action: Reviewed on 12/22/20 1252 by FLACO BLAKE Metoprolol Tartrate (Metoprolol Tartrate) 25 Mg Tablet, 1 TAB PO BID, #180 Ref 1 (Reported) Entered as Reported by: MIKA EVANS on 05/14/14 1005 Last Action: Reviewed on 12/22/20 1252 by FLACO BLAKE [place]-3 Fatty Acids/Fish Oil (Fish Oil 1,000 Mg Capsule) 1 Each Capsule, 1 EACH PO DAILY for HLD, (Reported) Entered as Reported by: FLACO BLAKE on 12/22/201251 Last Action: New Order on 12/22/201251 by FLACO BLAKE Pantoprazole Sodium (Pantoprazole Sodium ) 40 Mg Tablet.dr, 40 MG PO DAILYAC for PUD for 30 Days, #30 Ref 1 Prescribed by: LAUREN FERNANDEZ MD on 12/23/20 1151 Simvastatin (Simvastatin) 40 Mg Tablet, 1 TAB PO QHS, #30 Ref 5 (Reported) Entered as Reported by: MIKA EVANS on 05/14/14 1005 Last Action: Reviewed on 12/22/201251 by FLACO BLAKE Discontinued Medications Aspirin (Aspirin) 325 Mg Tablet, 1 TAB PO HS, #30 Ref 5 (Reported) Entered as Reported by: Shirley Rios on 05/14/14 1828 Last Action: Reviewed on 12/22/201251 by FLACO BLAKE Clopidogrel Bisulfate (Clopidogrel) 75 Mg Tablet, 1 TAB PO DAILY, #90 Ref 1 (Reported) Entered as Reported by: MIKA EVANS on 05/14/14 100 Last Action: Reviewed on 12/22/201251 by FLACO BLAKE [potassium] , 525 MG PO DAILY for supplement , (Reported) Entered as Reported by: FLACO BLAKE on 12/22/201251 Last Action: New Order on 12/22/201251 by FLACO BLAKE Justicifation of Admission Dx: Justifications for Admission: Justification of Admission Dx: Yes LAUREN FERNANDEZ MD Dec 23, 2020 12:09
--- NOTE | 2020-12-23 12:45 | NUR ---
Discharge Note: [facility] Discharge instructions and discharge home medications reviewed with Patient and a copy given. All questions have been answered and understanding verbalized. The following instructions and handouts were given: f/u with PCP within two weeks. Discontinued lines and drains: Peripheral IV intact. Patient discharged to Home or Self Care with Family Member via [facility].
--- NOTE | 2020-12-26 18:09 | PATHOLOGY ---
[facility] Accession Number: [id number] . 01 Material submitted: . gastrointestinal site - GASTRIC ULCER BIOPSY . 01 Clinical history: . MELENA EGD . 02 Diagnosis: Gastric biopsies, gastric ulcer: - Active chronic gastritis, moderate to marked, with rare Helicobacter organisms identified. . ([facility]:mm; 12/26/2020) [facility] 12/26/2020 1102 Local . 02 Comment: Sections of the gastric ulcer biopsy reveal segments of gastric antral mucosa showing congestion and moderate to marked active chronic inflammation. A properly-controlled immunoperoxidase stain for Helicobacter reveals rare Helicobacter organisms. There is no evidence of malignancy. . Special stain: Immunoperoxidase stain for Helicobacter . ([facility]:mml; 12/26/2020) . 02 Electronically signed: . Peter Aquino MD, Pathologist NPI- [id number] . 01 Gross description: . Received in formalin labeled "Jeff Hidalgo, gastric ulcer biopsy" are 2 fragments of perez-brown soft tissue measuring 0.5 x 0.4 x 0.3 cm and 0.4 x 0.3 x 0.3 cm. The specimen is submitted entirely in A1. ([facility]; 12/24/2020) G[facility]/GZA 12/24/2020 0945 Local . 02 Pathologist provided ICD-10: K29.50, B96.81 . 02 CPT . 864633, [id number] Specimen Comment: A courtesy copy of this report has been sent to [phone], [phone] Specimen Comment: [id number], Specimen Comment: Report sent to , / Performed at: 01 [facility] [address], [place], [place] [id number] MD Denys Archuleta MD Phone: [phone] Performed at: 02 [facility] [address], [place] [id number] MD Peter Aquino MD Phone: [phone]
== END 2020-12-23 12:45 | disposition home or self-care (01) ==
LOC: ER 07:43 → CVICU 11:32 → 6 SOUTH 18:00
PROVIDERS: ADMIT Internal Medicine; ATTEND Internal Medicine
DX: K92.1 Melena (principal); Z20.822 Contact with and (suspected) exposure to COVID-19; R14.0 Abdominal distension (gaseous); D72.829 Elevated white blood cell count, unspecified; I25.10 Atherosclerotic heart disease of native coronary artery without angina pectoris; I10 Essential (primary) hypertension; I25.2 Old myocardial infarction; E78.5 Hyperlipidemia, unspecified; K21.9 Gastro-esophageal reflux disease without esophagitis; E78.00 Pure hypercholesterolemia, unspecified; F10.10 Alcohol abuse, uncomplicated; F17.210 Nicotine dependence, cigarettes, uncomplicated; F41.9 Anxiety disorder, unspecified; F32.9 Major depressive disorder, single episode, unspecified; K40.90 Unilateral inguinal hernia, without obstruction or gangrene, not specified as recurrent; Z95.5 Presence of coronary angioplasty implant and graft; Z79.82 Long term (current) use of aspirin; Z95.1 Presence of aortocoronary bypass graft; Z98.890 Other specified postprocedural states; Z79.01 Long term (current) use of anticoagulants; Z79.899 Other long term (current) drug therapy
CPT/HCPCS: 36415; 43239; 71045; 80048; 80076; 82274; 83540; 83550; 85025; 85027; 85610; 85730; 87426; 93005; 96374; 96376; 99285; C9113; G0378; G0480; J2704; J7120; U0003; 88305; 88342; G0379